=== PATIENT | female | born 1975 | race Two or more races ===

== ENCOUNTER 2022-04-08 21:16 | Emergency (ER) | payer MEDICAID ==
[~2022-04-08] VITALS: Ht 162.6 cm; Wt 75.0 kg
[2022-04-08 22:19] VITALS: BP 115/63
[2022-04-09] MEDS ORDERED: AZIT250T9 PO (01:38)
== END 2022-04-09 01:00 | disposition home or self-care (01) ==
LOC: ER 21:16
DX: U07.1 COVID-19 (principal); J20.9 Acute bronchitis, unspecified; R07.89 Other chest pain
CPT/HCPCS: 36415; 71045; 87426

== ENCOUNTER 2022-10-28 20:07 | Emergency (ER) | payer MEDICAID ==
[~2022-10-28] VITALS: Ht 162.6 cm; Wt 83.3 kg
[~2022-10-28 20:07] MED LIST: AZIT-43 PO
[2022-10-28 20:58] LABS: Urine WBC None Seen /hpf (0 - 5)
[2022-10-28 21:05] LABS: Urine Bacteria NONE SEEN /hpf (None Seen); Urine Blood 3+ /uL (Negative); Urine Mucus FEW (None Seen); Urine Specific Gravity 1.024 (1.001-1.035)
[2022-10-28 21:34] LABS: Basophils # (auto) 0.1 10 ^3/uL (0-0.2); Basophils % (auto) 0.4 % (0.0-2.0); Eosinophils # (auto) 0.1 10 ^3/uL (0-0.8); Eosinophils % (auto) 0.8 % (0.0-7.0); Hematocrit 35.3 % (36.0-46.0); Hemoglobin 12.2 g/dL (12.2-16.2); Lymphocytes # (auto) 1.3 10 ^3/uL (0.4-5.4); Lymphocytes % (auto) 8.8 % (10.0-50.0); Mean Corpuscular Hemoglobin 28.6 pg (28.0-32.0); Mean Corpuscular Hgb Conc. 34.5 g/dL (32.0-36.0); Mean Corpuscular Volume 82.8 fL (80.0-100.0); Monocytes # (auto) 0.6 10 ^3/uL (0-1.3); Monocytes % (auto) 4.3 % (0.0-12.0); Neutrophils # (auto) 12.7 10 ^3/uL (1.6-8.6); Neutrophils % (auto) 85.7 % (37.0-80.0); Red Blood Cells 4.27 10^6/uL (4.0-5.20); Red Cell Distribution Width 14.8 % (11.8-14.3); White Blood Cell 14.8 10^3/uL (4.4-10.8)
[2022-10-28 21:55] LABS: Albumin 3.5 g/dL (3.4-5.0); Calcium 8.4 mg/dL (8.5-10.1)
[2022-10-28 21:58] LABS: BUN/Creatinine Ratio 14.8 (10.0-20.0); Bilirubin, Total 0.7 mg/dL (0.2-1.0)
[2022-10-29] MEDS ORDERED: IOHEXOL 300 MG/ML 100ML BOTTLE IJ ONE (02:10)
[2022-10-29 05:48] VITALS: BP 124/83
== END 2022-10-29 06:39 | disposition home or self-care (01) ==
LOC: ER 20:09
DX: D72.829 Elevated white blood cell count, unspecified (principal); E83.51 Hypocalcemia; R07.9 Chest pain, unspecified; Z88.1 Allergy status to other antibiotic agents
CPT/HCPCS: 36415; 71045; 74177; 80053; 81001; 83690; 84484; 85025; 93005; 99285; Q9967

== ENCOUNTER 2024-03-16 18:08 | Emergency (ER) | payer MEDICAID ==
[~2024-03-16] VITALS: Ht 162.6 cm; Wt 82.2 kg
[2024-03-16 18:10] VITALS: BP 118/52; PULSE 83; RESP 20; TEMP 99.1; O2SAT 99
[2024-03-16] MEDS: TRIAMCINOLONE 40MG/ML 1ML VIAL IM ONE (21:31)
== END 2024-03-16 21:40 | disposition home or self-care (01) ==
LOC: ER 18:08
DX: J30.89 Other allergic rhinitis (principal)
CPT/HCPCS: 71046; 96372; 99283; J3301

== ENCOUNTER 2024-07-27 21:00 | Emergency (ER) | payer MEDICAID ==
[~2024-07-27] VITALS: Ht 162.6 cm; Wt 85.6 kg
[2024-07-27 21:24] VITALS: BP 125/61; PULSE 72; RESP 18; TEMP 97; O2SAT 96
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
[2024-07-27] MEDS: KETOROLAC TROMETH 60MG/2ML VIAL IM ONE (23:26)
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
[2024-07-27] MEDS ORDERED: METH4PAK PO (23:47)
[2024-07-27] MEDS ORDERED: TIZA-142 PO (23:47)
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
== END 2024-07-28 00:25 | disposition home or self-care (01) ==
LOC: ER 21:00
DX: S13.4XXA Sprain of ligaments of cervical spine, initial encounter (principal); S23.3XXA Sprain of ligaments of thoracic spine, initial encounter; S33.5XXA Sprain of ligaments of lumbar spine, initial encounter; S80.02XA Contusion of left knee, initial encounter; V89.2XXA Person injured in unspecified motor-vehicle accident, traffic, initial encounter; Y93.I9 Activity, other involving external motion; Y92.488 Other paved roadways as the place of occurrence of the external cause; Y99.8 Other external cause status
CPT/HCPCS: 72125; 72128; 72131; 73562; 96372; 99285; J1885